=== PATIENT | female | born 1995 | race Hispanic/Latino ===

== ENCOUNTER 2020-08-09 12:30 | Day surgery (SDC) | payer OTHER ==
[2020-08-09] MEDS ORDERED: GABAPENTIN 100 MG CAP PO ONE (13:00)
--- OUTSIDE RECORDS SUMMARY | 2020-08-09 13:05 | XMS REPORT | Summary of Care ---
:1995 Author Organization [facility] Address [address] [place] [address] Care Team Providers Name Role Phone MD Melva Unavailable Unavailable Arvind Heath MD Primary Care Provider Reason for Visit Reason Comments Refill Request Encounter Details Date Type Department Care Team Description 07/25/2020 Refill [facility] Family Medicine Cliff Cintron MD Refill Request - [address] [place] [address] [place] [address] [phone] Allergies No Known Allergiesdocumented as of this encounter (statuses as of 07/25/2020) Medications Medication Sig Dispensed Refills Start Date End Date Status albuterol 2.5 mg /3 mL Inhale 3 mL every 120 Vial 1 8 Active (0.083 %) nebulizer 4 (four) hours as solution needed for Wheezing, Shortness of Breath or Chest tightness. Via nebulizer cetirizine (ZYRTEC) 10 Take 10 mg by 0 Active mg tablet mouth daily. benzonatate 200 mg TK 1 C PO TID PRF 0 09/08/2018 Active capsule COUGH mometasone 50 Use 1 [place] in 17 g 11 12/04/2018 Active mcg/actuation nasal each nostril 2 sprayIndications: Acute (two) times allergic rhinitis daily. beclomethasone Inhale 2 Puffs 2 8.7 g 11 06/17/2019 Active dipropionate (QVAR (two) times REDIHALER) 80 daily. mcg/actuation inhalerIndications: Mild persistent asthma without complication albuterol 90 SHAKE WELL AND 8.5 g 0 01/21/2020 A ctive mcg/actuation INHALE 2 PUFFS BY inhalerIndications: MOUTH EVERY 6 Mild persistent asthma HOURS NEEDED without complication FOR WHEEZING AND SHORTNESS OF BREATH MONTELUKAST 10 mg TAKE 1 TABLET BY 30 tablet 0 03/28/2020 Active tabletIndications: MOUTH DAILY Acute allergic rhinitis documented as of this encounter (statuses as of 07/25/2020) Active Problems Problem Noted Date Soft tissue mass 06/12/2016 Obesity 06/12/2016 Allergic rhinitis 06/06/2016 Mild persistent asthma without complication 06/24/2015 documented as of this encounter (statuses as of 07/25/2020) Resolved Problems Problem Noted Date Resolved Date Symptomatic cholelithiasis 11/08/2016 12/24/2016 Cholelithiasis with cholecystitis 10/15/20162016 documented as of this encounter (statuses as of 07/25/2020) Immunizations Name Administration Dates Next Due Influenza Virus Vaccine Quad IM Multi-dose 6+ MO 06/06/2016 Pneumococcal Polysaccharide, PPSV23 (PNEUMOVAX) 06/06/2016 documented as of this encounter Social History Tobacco Use Types Packs/Day Years Used Date Former Smoker Smokeless Tobacco: Never Used Alcohol Use Drinks/Week oz/Week Comments Yes 0 Standard drinks or equivalent 0.0 Social Drinker Sex Assigned at Date Recorded Not on file documented as of this encounter Last Filed Vital Signs Not on filedocumented in this encounter Plan of Treatment Health Maintenance Due Date Last Done Comments VARICELLA VACCINES (1 of 2 - 2-dose childhood series) 1994 Depression Screening 2005 DTaP,Tdap,and Td Vaccines (1 - Tdap) 2012 PAP SMEAR 2014 INFLUENZA VACCINE (#1) 2020 06/06/2016 PNEUMOCOCCAL 0-64 YEARS COMBINED SERIES Completed 06/06/20 16 documented as of this encounter Results Not on filedocumented in this encounter Visit Diagnoses Diagnosis Acute allergic rhinitis documented in this encounter Insurance Payer Benefit Plan / Subscriber ID Effective Dates Phone Addre ss Type Group [facility] CLAIMS [id number] 2013-Present PPO documented as of this encounter
--- OUTSIDE RECORDS SUMMARY | 2020-08-09 13:05 | XMS REPORT | Summary of Care ---
:1995 Author Organization [facility] Address [address] [place] [address] Care Team Providers Name Role Phone MD Melva Unavailable Unavailable Arvind Heath MD Primary Care Provider Reason for Visit Reason Comments Refill Request Encounter Details Date Type Department Care Team Description 07/05/2020 Refill [facility] Family Medicine Cliff Cintron MD Refill Request - [address] [place] [address] [place] [address] [phone] Allergies No Known Allergiesdocumented as of this encounter (statuses as of 07/05/2020) Medications Medication Sig Dispensed Refills Start Date [...] Active capsule COUGH mometasone 50 Use 1 [place] in 17 g 11 12/04/2018 Active mcg/actuation [...] as of this encounter (statuses as of 07/05/2020) Active Problems Problem Noted Date Soft tissue mass 06/12/2016 Obesity 06/12/2016 Allergic rhinitis 06/06/2016 Mild persistent asthma without complication 06/24/2015 documented as of this encounter (statuses as of 07/05/2020) Resolved Problems Problem Noted Date Resolved Date Symptomatic cholelithiasis 11/08/2016 12/24/2016 Cholelithiasis with cholecystitis 10/15/20162016 documented as of this encounter (statuses as of 07/05/2020) Immunizations Name Administration Dates Next Due Influenza [...] filedocumented in this encounter Visit Diagnoses Diagnosis Mild persistent asthma without complicat ion Unspecified asthma documented in this encounter Insurance Payer Benefit Plan / Subscriber ID Effective Dates Phone Addre ss Type Group [facility] CLAIMS [id number] 2013-Present PPO documented as of this encounter
--- OUTSIDE RECORDS SUMMARY | 2020-08-09 13:05 | XMS REPORT | Continuity of Care Document ---
:1995 Author Organization [facility] t Address [address] [place] [address] Dr. [address] [place] [address] Care Team Providers Name Role Phone Arvind Heath MD Attending Clinician Doctor Unassigned, Name Attending Clinician Unavailable Problems This patient has no known problems. Allergies, Adverse Reactions, Alerts This patient has no known allergies or adverse reactions. Medications This patient has no known medications. Procedures This patient has no known procedures. Encounters Start End Encounter Admission Attending Care Care Encounter Source Date/Time Date/Time Type Type Clinicians Facility Department ID 2020-07-25 2020-07-25 [id number] 00:00:00 00:00:00 [facility] [id number] [place] [id number] Professio [phone] [place] [address] Office Building One 2020-07-14 2020-07-14 [facility] [id number] 00:00:00 00:00:00 [facility] [id number] [place] [id number] Professio [phone] [place] [address] Office Building One 2020-07-05 2020-07-05 [facility] [id number] 00:00:00 00:00:00 [facility] [id number] [place] [id number] Professio [phone] [place] [address] Office Building One 2020-03-28 2020-03-28 Refill [place], [facility] [id number] 00:00:00 00:00:00 [facility] [id number] [place] [id number] Professio [phone] [place] [address] Office [facility] One 2020-03-27 2020-03-27 Refill [place], [facility] [id number] 00:00:00 00:00:00 [facility] [id number] [place] [id number] Professio [phone] [place] [address] Office [facility] One 2020-02-12 2020-02-12 Refill [place], [facility] 1.2.840.114 [id number] 00:00:00 00:00:00 [facility] [id number] [place] [id number] Professio [phone] [place] [address] Office [facility] One 2020-02-11 2020-02-11 Refill [place], [facility] [id number] 00:00:00 00:00:00 [facility] [id number] [place] [id number] Professio [phone] [address] One 2020-01-21 2020-01-21 Refill [place], [facility] [id number] 00:00:00 00:00:00 [facility] [id number] [place] [id number] Professio [phone] [place] [address] Office [facility] One 2019-12-25 2019-12-25 Orders Doctor ALEXI [id number] 22 00:00:00 00:00:00 Only Unassigned, [place] [id number] [place] [facility] [id number] [phone] [phone] 2019-12-23 Refill Ivana, [facility] [id number] 00:00:00 00:00:00 [facility] [id number] [place] [id number] Professio [phone] nal [facility] Office Building One 2019-12-21 2019-12-21 [place] Ivana [facility] [id number] 00:00:00 00:00:00 [facility] [id number] [place] [id number] Professio [phone] [place] [address] Office Building One 2019-11-06 2019-11-06 [facility] [id number] 00:00:00 00:00:00 [facility] [id number] [place] [id number] Professio [phone] [place] [address] Office Building One 2019-04-07 2019-04-07 [facility] [id number] 00:00:00 00:00:00 [facility] [id number] [place] [id number] Professio [phone] [place] [address] Office Building One Results This patient has no known results.
--- OUTSIDE RECORDS SUMMARY | 2020-08-09 13:05 | XMS REPORT | Summary of Care ---
:1995 Author Organization [facility] Address [address] [place] [address] Care Team Providers Name Role Phone MD Melva Unavailable Unavailable Arvind Heath MD Primary Care Provider Reason for Visit Reason Comments Refill Request Encounter Details Date Type Department Care Team Description 07/14/2020 Refill [facility] Cliff Cintron MD Refill Request - [address] [place] [address] [place] [address] [phone] Allergies No Known Allergiesdocumented as of this encounter (statuses as of 07/15/2020) Medications Medication Sig Dispensed Refills Start Date [...] Active capsule COUGH mometasone 50 Use 1 [place] in 17 g 11 12/04/2018 Active mcg/actuation [...] as of this encounter (statuses as of 07/15/2020) Active Problems Problem Noted Date Soft tissue mass 06/12/2016 Obesity 06/12/2016 Allergic rhinitis 06/06/2016 Mild persistent asthma without complication 06/24/2015 documented as of this encounter (statuses as of 07/15/2020) Resolved Problems Problem Noted Date Resolved Date Symptomatic cholelithiasis 11/08/2016 12/24/2016 Cholelithiasis with cholecystitis 10/15/20162016 documented as of this encounter (statuses as of 07/15/2020) Immunizations Name Administration Dates Next Due Influenza [...] Effective Dates Phone Addre ss Type Group [facility] [employer] CLAIMS [id number] 2013-Present PPO documented as of this encounter
[2020-08-09] MEDS ORDERED: ACETAMINOPHEN 325 MG TABLET ONE (13:07)
[2020-08-09] MEDS ORDERED: CEFAZOLIN/SWI 2gm 2 GM/20 ML SYR ONE (13:07)
[2020-08-09] MEDS ORDERED: Ringers Lactate 1,000 ML IV ONE ×2 (13:07→16:56)
[2020-08-09 13:09] LABS: Specific Gravity 1.025 (1.005-1.030)
[2020-08-09] MEDS ORDERED: MIDAZOLAM HCL 2 MG/2 ML INJ ONE ×2 (15:31→15:37)
[2020-08-09] MEDS ORDERED: propofoL 200 MG/20 ML VIAL IV ONE (15:37)
[2020-08-09] MEDS ORDERED: LIDOCAINE 1% MPF 5 ML VIAL ONE (15:37)
[2020-08-09] MEDS ORDERED: FENTANYL CITR 100 MCG/2 ML ONE ×3 (15:37→16:44)
[2020-08-09] MEDS ORDERED: ROCURONIUM 50 MG/5 ML VIAL IV ONE (15:37)
[2020-08-09] MEDS ORDERED: CEFAZOLIN SODIUM 1 GM/VIAL ONE (15:52)
[2020-08-09] MEDS ORDERED: KETOROLAC 30 MG/ML INJ ONE (16:05)
[2020-08-09] MEDS ORDERED: dexAMETHasone 10 MG/ML VIAL ONE (16:05)
[2020-08-09] MEDS ORDERED: ONDANSETRON 4 MG/2 ML VIAL ONE ×3 (16:44→19:09)
[2020-08-09] MEDS ORDERED: GLYCOPYRROLATE 0.2 MG/ML SYR ONE (16:56)
[2020-08-09] MEDS ORDERED: NEOSTIGMINE 1 MG/ML -5 ML ONE (16:57)
--- NOTE | 2020-08-09 17:08 | P.OP ---
Preoperative diagnosis: Ventral Abdominal Wall hernias Postoperative diagnosis: Ventral Abdominal Wall hernias Primary procedure: Laparoscopic ventral abdominal hernia repair with mesh Secondary procedure: laparoscopic reduction of incarcerated omentum Estimated blood loss: 10 cc Specimen: none Findings: incarcerated omentum Implants: 15 x [address] mesh with echo position Transferred to: Recovery Room Condition: Good
[2020-08-09] MEDS ORDERED: MORPHINE 10 MG/ML VIAL ONE (17:14)
[2020-08-09] MEDS: HYDROMORPHONE HCL 1 MG/ML INJ ONE ×2 (17:24→17:30)
[2020-08-09] MEDS ORDERED: MEPERIDINE HCL 25 MG/ML SYR ONE (17:25)
[2020-08-09] MEDS ORDERED: HYDROCODONE/APAP 7.5/325 MG TAB ONE (18:04)
--- NOTE | 2020-08-09 18:25 | OP ---
Date of Procedure: 08/09/2020 Surgeon: Anuj Clements MD, Preoperative Diagnosis: Ventral abdominal wall hernias. Postoperative Diagnosis: Ventral abdominal wall hernias. Procedures Performed: 1.A laparoscopic ventral abdominal hernia repair with mesh. 2.Laparoscopic reduction of incarcerated omentum. Estimated Blood Loss: Less than 10 mL. Specimen: None. Findings: Incarcerated omentum. Implants: 15 x [address] mesh with Echo Positioning System. Disposition: The patient was transferred to recovery in good condition. Procedure In Detail: After informed consent was obtained, the patient was brought to the operating r oom and prepped and draped in the usual sterile fashion. After adequate anesthesia was achieved, an incision was made in the left upper quadrant for a 5 mm 0-degree optical trocar, which was introduced the abdomen without evidence of complication. Insufflation was obtained to 15 mmHg at this time. A dditional trocar was placed in the left lower quadrant. This was similarly anesthetized and sharply incised. A 5 mm trocar was introduced in the abdomen without evidence of complication. The left upp er quadrant trocar was then up-sized to a 12 mm under direct visualization without evidence of compli cation. The LigaSure device was then brought into the field and the anterior abdominal wall supraumb ilical epigastric ventral abdominal hernia was appreciated as well as a periumbilical supraumbilical hernia. Both of these were examined and the omentum was found to be entrapped in the epigastric. Th is was reduced using the LigaSure device and traction to reduce the omentum back to the normal anatom ic position. It was incarcerated at that time. The remaining preperitoneal fat was removed off the anterior abdominal wall and sent off its debridement tissue. After the abdominal wall was cleared an d skeletonized peritoneal space and fascia, the Endo Stitch was then brought in with a V-L oc and used to secure and suture these hernia defects and closed in a running fashion with good appos ition of the tissues and closure of the defects. The 15 x [address] mesh was then br ought in appropriately. The hernia defects themselves were small, but spaced apart such that a 5 cm underlay was appreciated using the Bard Ventralight mesh. The distance between the 2 including under lay was approximately 10 cm. As such, a 15 x 20 cm mesh was used. After the balloon system was depl oyed in the central portion of the defect, the absorbable fixation and SorbaFix tacks were used to se cure a crown at this point. The balloon deployment system was then removed and the mesh was then sec ured to the anterior abdominal wall with 90 additional tacks circumferentially in a double crown fash ion with good approximation tissues. There were no hemostatic maneuvers required. The abdomen was t hen inspected and no additional maneuvers were required. The left upper quadrant trocar was removed. The left trocar site was closed using a Preet-Terrance suture passer with a 0 Vicryl in interrupte d fashion and then the abdomen was completely desufflated under direct visualization without evidence of complication. All trocars were removed. All skin incisions were copiously irrigated and closed with 4-0 Monocryl in a running fashion. Dermabond was placed over top. The patient tolerated the pr ocedure well without evidence of complication and transferred to PACU in good condition. All counts were correct at the end of the case. BRIE/TRINIDAD Voice ID: [id number] Report ID: [id number]
[2020-08-09 19:26] VITALS: BP 149/90; TEMP 97; O2SAT 95
== END 2020-08-09 19:10 | disposition home or self-care (01) ==
LOC: OR 12:30
PROVIDERS: ATTEND Surgery
PROC: 0WUF4JZ Supplement Abdominal Wall with Synthetic Substitute, Percutaneous Endoscopic Approach (ICD-10-PCS; principal; 2020-08-09 14:00)
DX: K43.6 Other and unspecified ventral hernia with obstruction, without gangrene (principal); Z20.828 Contact with and (suspected) exposure to other viral communicable diseases; J45.909 Unspecified asthma, uncomplicated; R06.83 Snoring; E66.9 Obesity, unspecified; Z68.42 Body mass index [BMI] 45.0-49.9, adult
CPT/HCPCS: 81025; 49653; U0003; J2704; J2250; J3010 ×3; J1100; J2175; J1170; J2710; J0690 ×2; J7120 ×2; J2405 ×3

== ENCOUNTER 2020-08-11 17:55 | Emergency (ER) | payer OTHER ==
--- OUTSIDE RECORDS SUMMARY | 2020-08-11 17:57 | XMS REPORT | Continuity of Care Document ---
:1995 Author Organization [facility] t Address [address] [place] [address] Dr. Bee. [address] [place] [address] Care Team Providers Name Role Phone Arvind [...] Clinicians Facility Department ID 2020-07-25 2020-07-25 [facility] [id number] 137 00:00:00 00:00:00 [facility] [id number] [place] [id number] Professio [phone] [place] [address] Office Building One 2020-07-14 2020-07-14 [facility] [id number] 00:00:00 00:00:00 [facility] [id number] [place] [id number] Professio [phone] [place] [address] Office Building One 2020-07-05 2020-07-05 [facility] 12.840.114 [id number] 00:00:00 00:00:00 [facility] [id number] [place] [id number] Professio [phone] [place] [address] Office Building One 2020-03-28 2020-03-28 Refill [place], [facility] [id number] 00:00:00 00:00:00 [facility] [id number] [place] [id number] Professio [phone] [place] [address] Office [facility] One 2020-03-27 2020-03-27 Refill [place], [facility] [id number] 00:00:00 00:00:00 [facility] [id number] [place] [id number] Professio [phone] [place] [address] Office [facility] One 2020-02-12 2020-02-12 Refill Iv[place], [facility] 1.2.840.114 [id number] 00:00:00 00:00:00 [facility] [id number] [place] [id number] Professio [phone] [place] [address] Office [facility] One 2020-02-11 2020-02-11 Refill [place], [facility] 1.2.840.114 [id number] 00:00:00 00:00:00 [facility] [id number] [place] [id number] Professio [phone] [address] One 2020-01-21 2020-01-21 Refill [place], [facility] 1.2.840.114 [id number] 00:00:00 00:00:00 [facility] [id number] [place] [id number] Professio [phone] [place] [address] Office [facility] One 2019-12-25 2019-12-25 Orders Doctor ALEXI 1.2.840.114 [id number] 22 00:00:00 00:00:00 Only Unassigned, [place] [id number] [place] [facility] [id number] [phone] [id number] 2019-12-23 2019-12-23 Refill Iv[place], [facility] 1.2.840.114 [id number] 00:00:00 00:00:00 [facility] [id number] [place] [id number] Professio [phone] nal [facility] Office Building One 2019-12-21 2019-12-21 [place] Ivana [facility] 1.2.840.114 [id number] 00:00:00 00:00:00 [facility] [id number] [place] [id number] Professio [phone] [place] [address] Office Building One 2019-11-06 2019-11-06 [facility] 1.2.840.114 [id number] 00:00:00 00:00:00 [facility] [id number] [place] [id number] Professio [phone] [place] [address] Office Building One 2019-04-07 2019-04-07 [facility] [id number] 00:00:00 00:00:00 [facility] [id number] [place] [id number] Professio [phone] [place] [address] Office Building One Results This patient has no known results.
[2020-08-11] MEDS ORDERED: LEVALBUTEROL 1.25 MG/3 ML NEB ONE (19:31)
[2020-08-11 20:01] LABS: Absolute Lymphocytes (CBC) 1.7 K/uL (0.7-4.9); Basophils % 0.6 % (0-1.3); Hematocrit 40.4 % (36.0-45.0); Lymphocytes % 27.4 % (15.3-44.8); MPV 7.8 fL (7.6-11.3)
--- NOTE | 2020-08-11 20:02 | RAD REPORT ---
EXAM DESCRIPTION: RAD - Chest Single View - 08/11/2020 7:54 pm CLINICAL HISTORY: chest pain, shortness of breathabdominal surgery earlier in the day COMPARISON: May 2014 TECHNIQUE: AP portable chest image was obtained 08/11/2020 7:54 pm . FINDINGS: Lung volumes are low. No peripheral mass or consolidation. Heart and vasculature are accen tuated by the low lung volumes. No significant failure or volume overload. No measurable pleural effu andree and no pneumothorax. No acute bony abnormality seen. No acute aortic findings suspected. IMPRESSION: Limited shallow inspiration chest exam without acute cardiopulmonary finding.
[2020-08-11 20:07] LABS: Protime INR 1.03
[2020-08-11 20:30] LABS: Albumin 3.8 g/dL (3.4-5.0); Alkaline Phosphatase 116 U/L (45-117); BUN Blood Urea Nitrogen 13 mg/dL (7-18); Bicarbonate 28 mmol/L (21-32); Bilirubin Direct 0.3 mg/dL (0-0.2); Bilirubin Total 0.7 mg/dL (0.2-1.0); Glucose Level 98 mg/dL (74-106); NT PRO-BNP 95 pg/mL (<125); Potassium 3.5 mmol/L (3.5-5.1); Protein, Total 7.4 g/dL (6.4-8.2); Sodium Level 142 mmol/L (136-145); Troponin (Emerg Dept Use Only) < 0.02 ng/mL (0.0-0.045)
[2020-08-11 20:39] LABS: ALT/SGPT 747 U/L (12-78); AST/SGOT 802 U/L (15-37)
--- NOTE | 2020-08-11 21:11 | RAD REPORT ---
EXAM DESCRIPTION: CT - Abdomen Pelvis W Contrast - 08/11/2020 8:54 pm CLINICAL HISTORY: sob, post op COMPARISON: Chest Single View dated 08/11/2020 TECHNIQUE: Biphasic, helical CT imaging of the abdomen and pelvis was performed following 100 ml non -ionic IV contrast. No oral contrast given. All CT scans are performed using dose optimization technique as appropriate and may include automated exposure control or mA/KV adjustment according to patient size. FINDINGS: Lung base findings are separately detailed. Prominent diffuse fatty infiltration of the liver is present with no focal liver lesions seen. Spleen and pancreas show no suspicious findings. Cholecystectomy clips present with no biliary tree dilatat ion. Symmetric renal function is seen with no hydronephrosis or suspicious renal mass. No pyelonephritis o r acute parenchymal process. No bladder abnormalities. No adrenal abnormalities. Uterus and ovaries s how no suspicious findings. Well-positioned IUD in place. No gastric dilatation or gastric wall thickening. Food and fluid are present in the stomach and moder ate stool present in the colon. No dilated large or small bowel loops. No acute GI process evident. Intraperitoneal free air is present along scattered air densities in the subcutaneous fatty tissues. These are not unexpected given the abdominal surgery performed earlier in the day. A small 2.8 x 2.0 centimeter air in fluid collection midline subcutaneous fat superior to the umbilicus is probably a s mall seroma and normal postoperative air. No hematoma or mass of the abdominal wall. No mass or bulk y lymphadenopathy. No suspicious bony findings. IMPRESSION: Postsurgical changes are present primarily in the periumbilical abdominal wall. The air, stranding and small fluid components are not outside of normal range for the recent surgery.
--- NOTE | 2020-08-11 21:14 | RAD REPORT ---
EXAM DESCRIPTION: CT - Chest For Pe Angio - 08/11/2020 8:54 pm CLINICAL HISTORY: chest pain, shortness of breath, recent surgery COMPARISON: CTANGIO CHEST FOR PE dated 07/27/2014 TECHNIQUE: Dynamically enhanced 3 mm thick images of the chest were obtained during administration o f approximately 150mL Isovue 370 IV contrast. Coronal and oblique MIP reconstruction images were gene rated and reviewed. Exam utilizes a protocol to evaluate the pulmonary arterial tree. All CT scans are performed using dose optimization technique as appropriate and may include automated exposure control or mA/KV adjustment according to patient size. FINDINGS: No pulmonary emboli are identified. The aorta as imaged shows no acute or suspicious finding. No pericardial thickening or effusion. Atelectasis changes are present along the medial aspect of the right upper lobe and in each posterior gutter. No acute infiltrate. No endobronchial lesion. Trace pleural effusions are seen. No pneumotho rax. No mediastinal or hilar suspicious masses. No chest wall masses or abnormal axillary lymphadenopathy. Upper abdominal findings are detailed in the CT abdomen and pelvis report. IMPRESSION: No pulmonary emboli identified. Partial atelectasis in the medial aspect of the right upper lobe and partial atelectasis in each post erior gutter.
--- NOTE | 2020-08-11 22:15 | ER ---
Nurse's Notes [facility] Name: Lavonne Vera Age: 25 yrs Sex: Female : 1995 Arrival Date: 08/11/2020 Time: 17:56 Bed 8 Private MD: Diagnosis: Dyspnea;Hepatitis Presentation: 08/11 18:10 Chief complaint: Patient states: Dr. Clements operated on 2 umbilical hernias on jl7 Saturday, with right sided chest pain started yesterday and this morning I woke up with vaginal bleeding, "I haven't had a period in months because I've had the IUD since April.". Coronavirus screen: Client denies travel out of the [place] in the last 14 days. At this time, the client does not indicate any symptoms associated with coronavirus-19. Ebola Screen: No symptoms or risks identified at this time. Initial Sepsis Screen: Does the patient meet any 2 criteria? No. Patient's initial sepsis screen is negative. Does the patient have a suspected source of infection? No. Patient's initial sepsis screen is negative. Risk Assessment: Do you want to hurt yourself or someone else? Patient reports no desire to harm self or others. Onset of symptoms was August 10, 2020. 18:10 Method Of Arrival: Ambulatory [facility] 18:10 Acuity: DANIAL 2 jl7 Triage Assessment: 18:14 General: Appears in no apparent distress. uncomfortable, Behavior is calm, cooperative, jl7 appropriate for age. Pain: Complains of pain in anterior aspect of right upper chest Pain currently is 5 out of 10 on a pain scale. Cardiovascular: Patient's skin is warm and dry. 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 - Social history:: Smoking status: Patient denies any tobacco usage or history of. Screenin:19 Abuse screen: Denies threats or abuse. Denies injuries from another. Nutritional bp screening: No deficits noted. Tuberculosis screening: No symptoms or risk factors identified. Fall Risk None identified. Assessment: 18:19 General: SEE TRIAGE NOTE. bp 19:15 General: Appears uncomfortable, Behavior is appropriate for age. Pain: Complains of ea pain in chest Pain does not radiate. Neuro: Level of Consciousness is awake, alert, obeys commands, Oriented to person, place, time. Respiratory: Airway is patent Respiratory effort is even, unlabored, Respiratory pattern is regular, symmetrical. Derm: Skin is pink, warm \\T\\ dry. 20:40 Reassessment: Patient and/or family updated on plan of care and expected duration. Pain ea level reassessed. Patient is alert, oriented x 3, equal unlabored respirations, skin warm/dry/pink. Pt taken to second floor. 21:30 Reassessment: Patient and/or family updated on plan of care and expected duration. Pain ea level reassessed. Patient is alert, oriented x 3, equal unlabored respirations, skin warm/dry/pink. 22:12 Reassessment: Patient and/or family updated on plan of care and expected duration. Pain ea level reassessed. Patient is alert, oriented x 3, equal unlabored respirations, skin warm/dry/pink. 22:29 Reassessment: Patient and/or family updated on plan of care and expected duration. Pain ea level reassessed. Patient is alert, oriented x 3, equal unlabored respirations, skin warm/dry/pink. Discharge instruction given to patient, verbalized the understanding of instruction. Pt left ED ambulatory tolerating well. Vital Signs: 18:10 BP 132 / 94; Pulse 115; Resp 22; Temp 99; Pulse Ox 97% ; Weight 119.75 kg; Height 5 ft. jl7 1 in. (154.94 cm); Pain 5/10; 18:26 BP 110 / 80; Pulse 118; Resp 20; Pulse Ox 95% on R/A; bp 20:27 BP 145 / 98; Pulse 105; Resp 20; Pulse Ox 95% ; ea 22:12 BP 147 / 56; Pulse 104; Resp 18; Pulse Ox 97% on R/A; ea 18:10 Body Mass Index 49.88 (119.75 kg, 154.94 cm) jl7 ED Course: 17:56 Patient arrived in ED. ag5 18:13 Triage completed. jl7 18:14 Arm band placed on right wrist. jl7 18:19 Slade Zimmerman, RN is Primary Nurse. bp 18:19 Patient has correct armband on for positive identification. Bed in low position. Call bp light in reach. Side rails up X2. bus driver/monitor on. Pulse ox on. NIBP on. 18:30 Bryan Lopez PA is PHCP. m 18:30 Alec Jamil MD is Attending Physician. jmm 19:00 Patient maintains SpO2 saturation greater than 95% on room air. ea 19:20 Inserted saline lock: 20 gauge in right antecubital area, using aseptic technique. ea Blood collected. 19:54 XRAY Chest (1 view) In Process Unspecified. EDMS 20:54 CT Chest For PE Angio In Process Unspecified. EDMS 20:54 CT Abd/Pelvis - IV Contrast Only In Process Unspecified. EDMS 22:13 Jeff Smith MD is Referral Physician. jmm 22:25 IV discontinued, intact, bleeding controlled, No redness/swelling at site. Pressure ea dressing applied. 22:29 No provider procedures requiring assistance completed. ea Administered Medications: 19:26 Drug: Xopenex (3) 1.25 mg Route: Inhalation; ea Outcome: 22:14 Discharge ordered by . [facility] [place] 22:27 Discharged to home ambulatory. ea 22:27 Condition: stable 22:27 Discharge instructions given to patient, Instructed on discharge instructions, follow up and referral plans. medication usage, Demonstrated understanding of instructions, follow-up care, medications, Prescriptions given X 1. 22:30 Patient left the ED. ea Signatures: Dispatcher [employer] EDMS Bryan Lopez PA PA jmm Leal, Jahala RN Parvin Fay RN RN ea Peltier, Brian, RN RN Fredrick Elias ag5
--- NOTE | 2020-08-11 22:15 | EDPHYS ---
Physician Documentation [facility] Name: Lavonne Vera Age: 25 yrs Sex: Female : 1995 Arrival Date: 08/11/2020 Time: 17:56 Bed 8 Private MD: ED Physician Alec Jamil HPI: 08/11 18:39 This 25 yrs old Female presents to ER via Ambulatory with complaints of Chest jmm Pain, Breathing Difficulty. 18:39 The patient has shortness of breath at rest. Onset: The symptoms/episode began/occurred jmm gradually, 1 day(s) ago. Duration: The symptoms are continuous. The patient's shortness of breath is aggravated by nothing, is alleviated by nothing. Associated signs and symptoms: Pertinent negatives: chest pain. This is a 25 year old female with a history of asthma that presents to the ED with complaints of shortness of breath beginning yesterday. Denies fever. Denies wheezing. Patient is 2 days s/p abdominal hernia repair. Denies vomiting, diarrhea. . 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 - Social history:: Smoking status: Patient denies any tobacco usage or history of. ROS: 18:39 Constitutional: Negative for fever, chills, and weight loss, Cardiovascular: Negative jmm for chest pain, palpitations, and edema. 18:39 Respiratory: Positive for shortness of breath. 18:39 Abdomen/GI: Positive for abdominal pain. 18:39 All other systems are negative. Exam: 18:39 Constitutional: This is a well developed, well nourished patient who is awake, alert, jmm and in no acute distress. Head/Face: atraumatic. Eyes: EOMI, no conjunctival erythema appreciated ENT: Moist Mucus Membranes Neck: Trachea midline, Supple Chest/axilla: Normal chest wall appearance and motion. Cardiovascular: Regular rate and rhythm. No edema appreciated Respiratory: Normal respirations, no respiratory distress appreciated Abdomen/GI: Non distended, soft Back: Normal ROM Skin: General appearance color normal MS/ Extremity: Moves all extremities, no obvious deformities appreciated, no edema noted to the lower extremities Neuro: Awake and alert, normal gait Psych: Behavior is normal, Mood is normal, Patient is cooperative and pleasant Vital Signs: 18:10 BP 132 / 94; Pulse 115; Resp 22; Temp 99; Pulse Ox 97% ; Weight 119.75 kg; Height 5 ft. jl7 1 in. (154.94 cm); Pain 5/10; 18:26 BP 110 / 80; Pulse 118; Resp 20; Pulse Ox 95% on R/A; bp 20:27 BP 145 / 98; Pulse 105; Resp 20; Pulse Ox 95% ; ea 22:12 BP 147 / 56; Pulse 104; Resp 18; Pulse Ox 97% on R/A; ea 18:10 Body Mass Index 49.88 (119.75 kg, 154.94 cm) jl7 MDM: 18:39 Patient medically screened. garret 22:11 Data reviewed: vital signs, nurses notes. Counseling: I had a detailed discussion with sabino the patient and/or guardian regarding: the historical points, exam findings, and any diagnostic results supporting the discharge/admit diagnosis, lab results, radiology results, the need for outpatient follow up, to return to the emergency department if symptoms worsen or persist or if there are any questions or concerns that arise at home. ED course: Patient is alert and non toxic in appearance in the ED. No epigastric abdominal pain. No vomiting. Advised to drink clear liquids. I discussed elevated ast alt along with the strict return precautions. Advised to follow up with pcp and otherwise given strict return precautions. patient understood and agrees with the plan of care.. 08/11 19:09 Order name: Basic Metabolic Panel; Complete Time: 20:44 [facility] 08/11 19:09 Order name: CBC with Diff; Complete Time: 20:04 [facility] 08/11 19:09 Order name: LFT's; Complete Time: 20:44 [facility] 08/11 19:09 Order name: Magnesium; Complete Time: 20:44 [facility] 08/11 19:09 Order name: NT PRO-BNP; Complete Time: 20:44 [facility] 08/11 19:09 Order name: PT-INR; Complete Time: 20:15 [facility] 08/11 19:09 Order name: Troponin (emerg Dept Use Only); Complete Time: 20:44 [facility] 19:09 Order name: XRAY Chest (1 view); Complete Time: 20:04 [facility] 19:09 Order name: EKG; Complete Time: 19:10 [facility] 19:09 Order name: Cardiac monitoring; Complete Time: 20:12 [facility] 19:10 Order name: CT Chest For PE Angio; Complete Time: 21:17 [facility] 08/11 20:36 Order name: CT Abd/Pelvis - IV Contrast Only; Complete Time: 21:17 [facility] 08/11 21:44 Order name: INCENTIVE SPIROMETRY [facility] 19:09 Order name: EKG - Nurse/Tech; Complete Time: 20:13 [facility] 08/11 19:09 Order name: IV Saline Lock; Complete Time: 20:13 [facility] 08/11 19:09 Order name: Labs collected and sent; Complete Time: 20:13 [facility] 19:09 Order name: O2 Per Protocol; Complete Time: 20:13 [facility] 08/11 19:09 Order name: O2 Sat Monitoring; Complete Time: 20:13 [facility] Administered Medications: 19:26 Drug: Xopenex (3) 1.25 mg Route: Inhalation; ea Disposition: 08/12 07:45 Co-signature as Attending Physician, Alec Jamil MD I agree with the assessment and garret plan of care. Disposition: 08/11/20 22:14 Discharged to Home. Impression: Dyspnea, Hepatitis. - Condition is Stable. - Discharge Instructions: Diet and Hepatitis, Shortness of Breath. - Prescriptions for Albuterol Sulfate 90 mcg/actuation Inhalation - inhale 1-2 puff by INHALATION route every 4-6 hours administer with aerochamber; 1 Inhaler. - Medication Reconciliation Form, Thank You Letter, Antibiotic Education, Prescription Opioid Use form. - Follow up: Jeff Smith MD; When: 2 - 3 days; Reason: Recheck today's complaints, Continuance of care, Re-evaluation by your physician. Signatures: Dispatcher [employer] Alec Akhtar MD MD cha Mickail, Joel, PA PA Kike Mills RN RN jl7 Parvin Can RN RN ea Corrections: (The following items were deleted from the chart) 08/11 22:30 22:14 08/11/2020 22:14 Discharged to Home. Impression: Dyspnea; Hepatitis. Condition is ea Stable. Forms are Medication Reconciliation Form, Thank You Letter, Antibiotic Education, Prescription Opioid Use. Follow up: Jeff Smith; When: 2 - 3 days; Reason: Recheck today's complaints, Continuance of care, Re-evaluation by your physician. sabino
[2020-08-12 16:01] VITALS: TEMP 99
[2020-08-12 16:05] VITALS: BP 147/56; O2SAT 97
--- NOTE | 2020-08-13 14:02 | EKG ---
Test Date: 2020-08-11 Test Time: 20:03:45 Fiscal Specialist: TONIE MEASUREMENT RESULTS: Intervals: Rate: 102 LA: 140 QRSD: 88 QT: 350 QTc: 456 Western: P: 42 LA: 140 QRS: -20 T: 22 INTERPRETIVE STATEMENTS: Sinus tachycardia Inferior infarct, age undetermined Abnormal ECG No previous ECG available for comparison Electronically Signed On 08-13-20 13:58:51 SPRAY MACHINE LOADER by Rasheed Hair
== END 2020-08-11 22:30 | disposition home or self-care (01) ==
LOC: ER 17:55
DX: K75.9 Inflammatory liver disease, unspecified (principal); Z98.890 Other specified postprocedural states; J45.909 Unspecified asthma, uncomplicated
CPT/HCPCS: 93005; 85025; 80048; 36415; 83735; 85610; 80076; 84484; 83880; 71275; 74177; 71045; 99285; Q9967